=== PATIENT | male | born 2000 | race Caucasian/White ===

== ENCOUNTER 2019-11-30 00:36 | Emergency (ER) | payer OTHER, BC, SELFPAY ==
[2019-11-30 00:55] VITALS: BP 123/71; PULSE 72; RESP 18; TEMP 36.6; O2SAT 98
--- NOTE | 2019-11-30 00:57 | DI.RAD.S_ITS ---
PROCEDURE: XR FINGER LT MIN 3V INDICATIONS: stove crushed it btween stove and floor while lifting stove. TECHNIQUE: AP hand, 3 views of the fourth finger(s) acquired. COMPARISON: None. FINDINGS: Bones: Nondisplaced fracture involving the tuft of the fourth distal phalange. Soft tissues: No suspicious soft tissue calcifications. IMPRESSION: Fourth distal phalange fracture. Dictated by: Cherri Bryan MD, PhD on 11/30/2019 at 9:17 Approved by: Cherri Bryan MD, PhD on 11/30/2019 at 9:18
--- NOTE | 2019-11-30 02:34 | ED.UPPEXIN ---
HPI - Extremity Injury (Upper) General Chief Complaint: Extremity Injury, Upper Stated Complaint: crushed left ring finger at work Time Seen by Provider: 11/30/19 02:25 Source: patient Mode of arrival: Ambulatory Limitations: no limitations History of Present Illness HPI narrative: Right-handed 19-year-old gentleman with no significant medical history was lifting a heavy object at work it slipped and crushed the distal portion of his left ring. He comes in for further evaluation Review of Systems Review of Systems Narrative: No numbness, tingling and he is neurovascularly intact. No fevers chills no additional trauma Patient History Social History Smoking Status: Never smoker Smoking Status: Never smoker Substance Use Type: does not use Exam Narrative Exam Narrative: General: Alert appropriate in no acute distress Respiratory: Able to speak in full sentences, no obvious respiratory distress Skin: No obvious rashes, warm and dry Neurologic: Grossly intact no obvious asymmetries or abnormalities Psych, appropriate insight and affect, cooperative Distal portion of the left ring finger with significant hematoma. 1/3 of the nail has subungual hematoma. He is neurovascularly intact. Procedure: Drainage hematoma distal left finger tip 2 cc of 1% lidocaine without epi ear injected on the palmar surface of the distal finger tuft. Using 11 blade needle a small incision is made to extrusion of hematoma on that tuft of the finger. Patient tolerated the procedure well small amount of blood was drained pressure was relieved. Initial Vital Signs Initial Vital Signs: Vital Signs Temperature 98 F 11/30/19 00:55 Pulse Rate 72 11/30/19 00:55 Respiratory Rate 18 11/30/19 00:55 Blood Pressure 123/71 11/30/19 00:55 Pulse Oximetry 98 11/30/19 00:55 Course Orders Ordered: ED Orders 11/30/19 00:57 XR finger LT min 2V Stat Discontinued Medications Bacitracin (Bacitracin) 1 applic TOP NOW ONE Stop: 11/30/19 02:34 Last Admin: 11/30/19 02:41 Dose: 1 applic Documented by: Vital Signs Vital signs: Vital Signs - 8 hr 11/30/19 00:55 11/30/19 02:39 Temperature 98 F Pulse Rate 72 75 Respiratory Rate 18 20 Blood Pressure 123/71 Blood Pressure [Left Arm] 125/65 Pulse Oximetry 98 100 MDM - Extremity Injury (Upper) Imaging Data Finger x-ray: Attestation: I personally reviewed and interpreted this imaging study as follows: My Impression: Left hand x-rays reviewed. Specifically distal tuft of the ring finger is not showing crush injury or fracture Discharge Plan Departure Patient Disposition: Home Clinical Impression: Finger injury Qualifiers: Encounter type: initial encounter Laterality: left Qualified Code(s): S69.92XA - Unspecified injury of left wrist, hand and finger(s), initial encounter Activity Restrictions/Additional Instructions: Thank you for coming in today. He had a minor crush injury to the tip of your left ring finger. The x-ray is very reassuring you did not injure the bone. There was a moderate amount of hematoma on the inner surface of the finger tip. We used a bit of numbing medicine and then made a small incision to the tip of your finger to allow for drainage. A small amount of clotted blood was extruded from the wound. I think that this will help with overall healing and relieve some of the pressure. Please keep the wound clean and dry and use antibiotic ointment and a dressing until the wound closes over. I would expect that bruising in that finger to take at least a week if not longer to completely resolve. There is a bit of blood under only about 1/3 of the fingernail. I do not expect that you will lose your fingernail but it is a possibility. If you're experiencing quite a bit of throbbing in the finger, not unexpected, make appoint of keeping your hand resting up on your shoulder so it's higher than the level of your heart. Ibuprofen and Tylenol can help if the pain persists. It looks like it's becoming infected, increasing redness increasing pain or drainage from the wound you do need to either return to the emergency department or follow-up with her primary care physician. I hope you heal quickly
[2019-11-30 02:39] VITALS: BP 125/65; PULSE 75; RESP 20; O2SAT 100
[2019-11-30] MEDS: BACITRACIN OINT 0.9 GM PCKT 1 APPLIC TOP (02:41)
== END 2019-11-30 02:49 | disposition home or self-care (01) ==
PROVIDERS: Emergency Provider Emergency Medicine
DX: S69.92XA Unspecified injury of left wrist, hand and finger(s), initial encounter (principal); X50.0XXA Overexertion from strenuous movement or load, initial encounter; Y99.0 Civilian activity done for income or pay
CPT/HCPCS: 10140; 73140; 99283